=== PATIENT | female | born 1965 | race Caucasian/White ===

== ENCOUNTER 2021-04-18 06:51 | Inpatient (IN) | payer BC, OTHER ==
[~2021-04-18] VITALS: Ht 160 cm; Wt 70.5 kg
--- NOTE | 2021-04-18 07:12 | NUR ---
KRISTIE GROVE [phone] TO COME SEE PT
--- NOTE | 2021-04-18 07:29 | NUR ---
PT SLEEPY BUT AROUSABLE. SLOW TO ANSWER QUESTIONS BUT ANSWERS APPROPRIATELY.
[2021-04-18 07:49] LABS: BASOPHILS % (AUTO) 0.4 % (0-1); EOSINOPHILS # (AUTO) 0.1 X10'3 (0-0.9); EOSINOPHILS % (AUTO) 1.4 % (0-6); HEMATOCRIT 40.5 % (35.0-45.0); HEMOGLOBIN 13.8 g/dl (12.0-16.0); LYMPHOCYTES # (AUTO) 1.8 X10'3 (1.1-4.8); LYMPHOCYTES % (AUTO) 24.4 % (21-51); MEAN CORPUSCULAR VOLUME 85.4 FL (78-98); MEAN PLATELET VOLUME 7.4 FL (7.4-10.4); MONOCYTES # (AUTO) 0.5 X10'3 (0-0.9); MONOCYTES % (AUTO) 7.2 % (2-12); NEUTROPHILS # (AUTO) 4.9 X10'3 (1.8-7.7); NEUTROPHILS % (AUTO) 66.6 % (42-75); PLATELET COUNT 256 X10'3 (140-440); RED BLOOD COUNT 4.75 X10'6 (4.20-5.60); RED CELL DISTRIBUTION WIDTH 14.3 % (11.5-14.5); WHITE BLOOD COUNT 7.4 X10'3 (4.5-11.0)
[2021-04-18 08:26] LABS: ALANINE AMINOTRANSFERASE 29 U/L (12-78); ALBUMIN 3.8 G/DL (3.4-5.0); ALBUMIN/GLOBULIN RATIO 1.1 (1.1-1.5); ALKALINE PHOSPHATASE 113 IU/L (46-116); ANION GAP 11 (8-16); ASPARTATE AMINO TRANSFERASE 25 U/L (10-37); BILIRUBIN,TOTAL 0.6 MG/DL (0.1-1.0); BLOOD UREA NITROGEN 9 MG/DL (7-18); BUN/CREATININE RATIO 10.3 (6.6-38.0); CALCIUM 8.9 MG/DL (8.5-10.1); CHLORIDE 110 MMOL/L (99-107); CREATININE 0.87 MG/DL (0.40-0.90); GLUCOSE 91 MG/DL (70-104); POTASSIUM 3.7 MMOL/L (3.5-5.1); SODIUM 145 MMOL/L (135-145); TOTAL CARBON DIOXIDE 23.8 MMOL/L (24-32); TOTAL PROTEIN 7.2 G/DL (6.4-8.2); eGFR 67 ML/MIN
[2021-04-18 08:59] LABS: C-REACTIVE PROTEIN 0.34 MG/DL (0.0-0.5); CREATINE KINASE 188 U/L (26-192); D-DIMER 0.48 MG/L FEU (0-0.50); ETHANOL < 0.010 GM/DL (0.0-0.010); MAGNESIUM 2.3 MG/DL (1.5-2.4); PARTIAL THROMBOPLASTIN TIME 26 SECONDS (22-32)
[2021-04-18] MEDS ORDERED: acetaminophen 325mg tablet PO PRN (09:05)
[2021-04-18] MEDS ORDERED: potassium Cl 20 mEq SR tablet PO PRN ×2 (09:05)
[2021-04-18] MEDS ORDERED: ondansetron/PF 4mg/2ml inj IV PRN (09:05)
[2021-04-18] MEDS ORDERED: magnesium 2GM in 50ml NS 50 ML IV PRN (09:05)
[2021-04-18] MEDS ORDERED: potassium Cl 40MEQ/1/2NS 520ml 520 ML IV PRN ×2 (09:05)
[2021-04-18] MEDS ORDERED: magnesium Cl slow-release 64mg tablet PO PRN (09:05)
[2021-04-18] MEDS ORDERED: magnesium 4gm in 100ml NS 100 ML IV PRN (09:05)
[2021-04-18] MEDS: K and/or MAG REPLACEMENT MC SCH (11:35)
[2021-04-18] MEDS: normal saline 1000ml 1,000 ML IV SCH ×2 (11:40→19:05)
--- NOTE | 2021-04-18 11:49 | NUR ---
PT SLEEPING QUIETLY BUT AROUSABLE. NO ACUTE DISTRESS NOTED AT THIS TIME.
[2021-04-18] MEDS ORDERED: PROG100C11 PO (12:55)
[2021-04-18] MEDS ORDERED: VALA100031 PO (12:55)
[2021-04-18] MEDS ORDERED: ESTR1TAB23 PO (12:55)
[2021-04-18] MEDS ORDERED: LORazepam 2 mg/ml vial IV ONE (14:55)
--- NOTE | 2021-04-18 15:48 | NUR ---
PT TO MRI VIA WHEELCHAIR IN STABLE CONDITION. PT MUCH MORE ALERT.. ATIVAN 1MG IV GIVEN FOR MRI
--- NOTE | 2021-04-18 17:07 | NUR ---
PT SLEEPING NO ACUTE DISTRESS NOTED AT THIS TIME. NO SZ, NO SYNCOPAL ESPISODES NOTED.
[2021-04-18 17:33] LABS: URINE AMPHETAMINE SCREEN NEGATIVE (Neg); URINE BARBITUATE SCREEN NEGATIVE (Neg); URINE BENZODIAZEPINES SCREEN NEGATIVE (Neg); URINE CANNABINOID SCREEN NEGATIVE (Neg); URINE COCAINE SCREEN NEGATIVE (Neg); URINE METHADONE SCREEN NEGATIVE (Neg); URINE OPIATE SCREEN NEGATIVE (Neg); URINE PHENCYCLIDINE SCREEN NEGATIVE (Neg)
--- NOTE | 2021-04-18 17:40 | NUR ---
dr. mojica called, stated pt had a stroke please give, lipitor 80mg, asa 325mg now
[2021-04-18] MEDS ORDERED: atorvastatin 20mg tablet PO STA (17:42)
[2021-04-18] MEDS ORDERED: aspirin 325mg tablet PO ONE (17:45)
--- NOTE | 2021-04-18 17:58 | NUR ---
daughter Daniela called [phone]
--- NOTE | 2021-04-18 18:00 | NUR ---
louann ashton's mother called to see how she is doing [phone]. will have dr. mojica call her back.
--- NOTE | 2021-04-18 18:10 | NUR ---
spoke with tania stroke nurse. will be in tomorrow unless needed today will come. teleneuro f/u to be ordered.
--- NOTE | 2021-04-18 18:18 | NUR ---
contacted [facility] for f/u consult after mri results.
--- NOTE | 2021-04-18 18:38 | NUR ---
F/U NEURO CONSULT IN PROGRESS
[2021-04-18] MEDS ORDERED: GADOTERATE MEGLUMINE 7.5 MMOL/15 ML VIAL IV ONE (18:39)
[2021-04-19] MEDS: normal saline 1000ml 1,000 ML IV SCH ×2 (07:59→15:05)
[2021-04-19] MEDS: K and/or MAG REPLACEMENT MC SCH ×2 (08:00→20:00)
[2021-04-19 08:53] LABS: BASOPHILS % (AUTO) 0.5 % (0-1); EOSINOPHILS # (AUTO) 0.2 X10'3 (0-0.9); EOSINOPHILS % (AUTO) 2.6 % (0-6); HEMATOCRIT 41.1 % (35.0-45.0); HEMOGLOBIN 13.9 g/dl (12.0-16.0); LYMPHOCYTES # (AUTO) 2.5 X10'3 (1.1-4.8); LYMPHOCYTES % (AUTO) 38.3 % (21-51); MEAN CORPUSCULAR HEMOGLOBIN 28.9 PG (27.0-31.0); MEAN CORPUSCULAR HGB CONC 33.8 g/dL (33.0-36.5); MEAN CORPUSCULAR VOLUME 85.4 FL (78-98); MEAN PLATELET VOLUME 7.4 FL (7.4-10.4); MONOCYTES # (AUTO) 0.5 X10'3 (0-0.9); MONOCYTES % (AUTO) 7.3 % (2-12); NEUTROPHILS # (AUTO) 3.3 X10'3 (1.8-7.7); NEUTROPHILS % (AUTO) 51.3 % (42-75); PLATELET COUNT 254 X10'3 (140-440); RED BLOOD COUNT 4.81 X10'6 (4.20-5.60); RED CELL DISTRIBUTION WIDTH 13.7 % (11.5-14.5); WHITE BLOOD COUNT 6.4 X10'3 (4.5-11.0)
[2021-04-19 09:12] LABS: ALBUMIN 3.4 G/DL (3.4-5.0); ANION GAP 12 (8-16); BLOOD UREA NITROGEN 11 MG/DL (7-18); BUN/CREATININE RATIO 12.1 (6.6-38.0); CALCIUM 8.5 MG/DL (8.5-10.1); CHLORIDE 110 MMOL/L (99-107); CHOL/HDL RATIO 4.4 (0.00-4.99); CHOLESTEROL 215 MG/DL (0-200); CREATININE 0.91 MG/DL (0.40-0.90); GLUCOSE 88 MG/DL (70-104); HDL CHOLESTEROL 49 MG/DL (35-60); LDL CHOLESTEROL 144 MG/DL (50-100); MAGNESIUM 2.2 MG/DL (1.5-2.4); POTASSIUM 3.9 MMOL/L (3.5-5.1); SODIUM 145 MMOL/L (135-145); TOTAL CARBON DIOXIDE 22.9 MMOL/L (24-32); TRIGLYCERIDES 65 MG/DL (20-135); eGFR 64 ML/MIN
[2021-04-19] MEDS ORDERED: LORazepam 2 mg/ml vial IV ONE (09:55)
--- NOTE | 2021-04-19 10:25 | NUR ---
NOTIFIED BY DR ROSARIO THAT HE SPOKE WITH DR FUCHS AND SHE IS REQUESTING A COVID SWAB OF PT. D/T PT BEING AT HER FATHERS BS 17/02 HE IS ON COMFORT CARE AND COVID +. PT GIVEN ATIVAN FOR MRI. PT TO MRI
[2021-04-19 11:00] VITALS: BP 130/89
[2021-04-19] MEDS ORDERED: PERFLUTREN PROTEIN-A MICROSPHR (Optison) 0.22 MG/ML 3ML VIAL IV PRN (13:30)
[2021-04-19 14:17] VITALS: BP 130/89
--- NOTE | 2021-04-19 14:35 | NUR ---
Left a message for legal technician @ [phone]
[2021-04-19 15:00] VITALS: BP 140/91
[2021-04-19] MEDS: aspirin 325mg tablet, delayed-release (Ecotrin) PO SCH (16:28)
[2021-04-19] MEDS: atorvastatin 20mg tablet PO SCH (16:28)
[2021-04-19 18:00] VITALS: BP 118/78
--- NOTE | 2021-04-19 18:55 | NUR ---
Patient in room PCU 3027. I have received report from DARRION Coulter and had the opportunity to ask questions and assume patient care.
[2021-04-20] MEDS: normal saline 1000ml 1,000 ML IV SCH ×3 (01:05→21:05)
--- NOTE | 2021-04-20 01:13 | NUR ---
Patient was having trouble answering questions when first woken up for neuro check, seemed groggy and a bit confused. Once she woke up more she was able to answer questions. Patient stated she must have been dreaming while she was answering me when she was first awoken from sleep.
--- NOTE | 2021-04-20 01:15 | NUR ---
Patient's 02 sats were 88-91 on RA while sleeping. Placed her on 1L of oxygen and was satting at 95%.
[2021-04-20 03:00] VITALS: BP 111/69
[2021-04-20 06:00] VITALS: BP 151/64
--- NOTE | 2021-04-20 06:20 | NUR ---
Received report from shift manager RN.
[2021-04-20 06:26] LABS: BASOPHILS % (AUTO) 0.4 % (0-1); EOSINOPHILS # (AUTO) 0.2 X10'3 (0-0.9); HEMATOCRIT 37.2 % (35.0-45.0); HEMOGLOBIN 12.8 g/dl (12.0-16.0); LYMPHOCYTES # (AUTO) 2.2 X10'3 (1.1-4.8); LYMPHOCYTES % (AUTO) 40.7 % (21-51); MEAN CORPUSCULAR HEMOGLOBIN 29.4 PG (27.0-31.0); MEAN CORPUSCULAR HGB CONC 34.4 g/dL (33.0-36.5); MEAN CORPUSCULAR VOLUME 85.5 FL (78-98); MEAN PLATELET VOLUME 7.3 FL (7.4-10.4); MONOCYTES # (AUTO) 0.5 X10'3 (0-0.9); MONOCYTES % (AUTO) 8.5 % (2-12); NEUTROPHILS # (AUTO) 2.6 X10'3 (1.8-7.7); NEUTROPHILS % (AUTO) 47.4 % (42-75); PLATELET COUNT 236 X10'3 (140-440); RED BLOOD COUNT 4.35 X10'6 (4.20-5.60); RED CELL DISTRIBUTION WIDTH 13.8 % (11.5-14.5); WHITE BLOOD COUNT 5.4 X10'3 (4.5-11.0)
[2021-04-20 06:45] LABS: ANION GAP 10 (8-16); BLOOD UREA NITROGEN 13 MG/DL (7-18); BUN/CREATININE RATIO 14.6 (6.6-38.0); CALCIUM 7.9 MG/DL (8.5-10.1); CHLORIDE 110 MMOL/L (99-107); CREATININE 0.89 MG/DL (0.40-0.90); GLUCOSE 86 MG/DL (70-104); POTASSIUM 3.7 MMOL/L (3.5-5.1); SODIUM 144 MMOL/L (135-145); TOTAL CARBON DIOXIDE 24.5 MMOL/L (24-32); eGFR 66 ML/MIN
--- NOTE | 2021-04-20 06:50 | NUR ---
Problems reprioritized. Patient report given, questions answered & plan of care reviewed with DARRION Coulter.
[2021-04-20] MEDS: K and/or MAG REPLACEMENT MC SCH ×2 (08:00→20:00)
[2021-04-20] MEDS: aspirin 325mg tablet, delayed-release (Ecotrin) PO SCH (08:48)
[2021-04-20] MEDS: atorvastatin 20mg tablet PO SCH (08:49)
[2021-04-20 11:00] VITALS: BP 115/85
[2021-04-20] MEDS ORDERED: ESCI10TA PO (12:50)
[2021-04-20] MEDS ORDERED: ESTR1TAB23 PO (12:50)
[2021-04-20] MEDS ORDERED: ESTR0.5T PO (14:09)
[2021-04-20] MEDS ORDERED: ESCI-8 PO (14:09)
[2021-04-20 15:00] VITALS: BP 112/72
--- NOTE | 2021-04-20 17:58 | NUR ---
Report given to assistant casino shift manager nurse.
[2021-04-20 18:00] VITALS: BP 136/95
--- NOTE | 2021-04-20 18:47 | NUR ---
Patient in room PCU 3027. I have received report from SANTI MAIER and had the opportunity to ask questions and assume patient care.
[2021-04-20] MEDS ORDERED: ESCITALOPRAM OXALATE 5 MG TABLET PO SCH (21:00)
[2021-04-20 22:00] VITALS: BP 121/75
[2021-04-21] MEDS: normal saline 1000ml 1,000 ML IV SCH (01:37)
[2021-04-21 02:00] VITALS: BP 114/66
[2021-04-21 06:00] VITALS: BP 158/71
--- NOTE | 2021-04-21 06:00 | NUR ---
Patient in room PCU 3027. I have received report from jaylon regan and had the opportunity to ask questions and assume patient care.
--- NOTE | 2021-04-21 06:19 | NUR ---
Problems reprioritized. Patient report given, questions answered & plan of care reviewed with DARRION Gordon.
[2021-04-21 06:56] LABS: BASOPHILS % (AUTO) 0.6 % (0-1); EOSINOPHILS # (AUTO) 0.2 X10'3 (0-0.9); EOSINOPHILS % (AUTO) 2.8 % (0-6); HEMATOCRIT 37.6 % (35.0-45.0); HEMOGLOBIN 12.9 g/dl (12.0-16.0); LYMPHOCYTES # (AUTO) 2.1 X10'3 (1.1-4.8); LYMPHOCYTES % (AUTO) 39.1 % (21-51); MEAN CORPUSCULAR HEMOGLOBIN 29.1 PG (27.0-31.0); MEAN CORPUSCULAR HGB CONC 34.2 g/dL (33.0-36.5); MEAN CORPUSCULAR VOLUME 84.9 FL (78-98); MEAN PLATELET VOLUME 7.5 FL (7.4-10.4); MONOCYTES # (AUTO) 0.5 X10'3 (0-0.9); MONOCYTES % (AUTO) 8.6 % (2-12); NEUTROPHILS # (AUTO) 2.7 X10'3 (1.8-7.7); NEUTROPHILS % (AUTO) 48.9 % (42-75); PLATELET COUNT 249 X10'3 (140-440); RED BLOOD COUNT 4.44 X10'6 (4.20-5.60); RED CELL DISTRIBUTION WIDTH 13.8 % (11.5-14.5); WHITE BLOOD COUNT 5.4 X10'3 (4.5-11.0)
[2021-04-21 07:05] LABS: ANION GAP 10 (8-16); BLOOD UREA NITROGEN 11 MG/DL (7-18); BUN/CREATININE RATIO 14.9 (6.6-38.0); CALCIUM 8.3 MG/DL (8.5-10.1); CHLORIDE 108 MMOL/L (99-107); CREATININE 0.74 MG/DL (0.40-0.90); GLUCOSE 85 MG/DL (70-104); SODIUM 142 MMOL/L (135-145); TOTAL CARBON DIOXIDE 24.4 MMOL/L (24-32); eGFR 81 ML/MIN
[2021-04-21 07:11] LABS: POTASSIUM 3.9 MMOL/L (3.5-5.1)
[2021-04-21] MEDS: K and/or MAG REPLACEMENT MC SCH (08:00)
[2021-04-21] MEDS: aspirin 325mg tablet, delayed-release (Ecotrin) PO SCH (08:52)
[2021-04-21] MEDS: atorvastatin 20mg tablet PO SCH (08:52)
[2021-04-21] MEDS ORDERED: ATOR20TA66 PO (09:36)
[2021-04-21] MEDS ORDERED: ASPI-1071 PO (09:36)
[2021-04-21] MEDS ORDERED: CLOP75TA15 PO (09:36)
--- NOTE | 2021-04-21 10:55 | NUR ---
MD Leonard arrived and informed pt plan to disch. pt agreeable and looking forward to go home
[2021-04-21 11:00] VITALS: BP 117/80
--- NOTE | 2021-04-21 12:10 | NUR ---
Pt iv removed, cath intact, site stable. reviewed all disch instructions and meds. pt questions answered. pt request neurology consult, md mojica directed her to obtain from her primary. pt a/ox4, dent sob, vss, amb steady, dressed self i, children at bedside to drive her home, decorator lighting fixtures escorted to vehicle via w/c. all belongings accounted for.
--- NOTE | 2021-04-21 12:10 | NUR ---
AGER ID: [id number] MESSAGE: [id number] Kei, Jania pt asking for a referal to a neurologist before leaving . Valeria [id number] received call back from md mojica. pt to see primary for neuro consult referal
== END 2021-04-21 12:10 | disposition home or self-care (01) | DRG 64 ==
LOC: ER 06:53 → ED HOLD 09:13 → EDBEDREQ 19:48 → PCU 3S 04-19 11:55
PROVIDERS: ADMIT Internal Medicine; ATTEND Internal Medicine
PROC: BW38YZZ Magnetic Resonance Imaging (MRI) of Head using Other Contrast (ICD-10-PCS; 2021-04-18)
PROC: 4A10X4Z Monitoring of Central Nervous Electrical Activity, External Approach (ICD-10-PCS; principal; 2021-04-20)
DX: I63.9 Cerebral infarction, unspecified (principal); G93.41 Metabolic encephalopathy; E78.00 Pure hypercholesterolemia, unspecified; E78.5 Hyperlipidemia, unspecified; F41.9 Anxiety disorder, unspecified; R94.31 Abnormal electrocardiogram [ECG] [EKG]; H53.2 Diplopia; I65.1 Occlusion and stenosis of basilar artery; R56.9 Unspecified convulsions; K57.90 Diverticulosis of intestine, part unspecified, without perforation or abscess without bleeding; Z20.822 Contact with and (suspected) exposure to COVID-19; N95.1 Menopausal and female climacteric states; Z90.49 Acquired absence of other specified parts of digestive tract
CPT/HCPCS: 36415; 70544; 70547; 70553; 71045; 80048; 80053; 80061; 80305; 80320; 82550; 83735; 83874; 84443; 85025; 85379; 85610; 85651; 85730; 86140; 87081; 87635; 93005; 93306; 93880; 93970; 95816; 97110; 97163; 99285; A9575; G0378; J2060; J7030